=== PATIENT | female | born 1970 | race Caucasian/White ===

== ENCOUNTER 2016-08-18 10:11 | Emergency (ER) | payer MEDICAID ==
[~2016-08-18] VITALS: Ht 165.1 cm; Wt 91.0 kg
[2016-08-18] MEDS ORDERED: ONDANSETRON 4MG ODT PO ONE (11:15)
[2016-08-18 12:33] VITALS: BP 133/89
== END 2016-08-18 12:35 | disposition home or self-care (01) ==
LOC: ER 10:12
DX: R10.84 Generalized abdominal pain (principal); Z98.890 Other specified postprocedural states
CPT/HCPCS: 99283; Q0162